=== PATIENT | male | born 1970 | race Caucasian/White ===

== ENCOUNTER 2024-01-13 22:23 | Inpatient (IN) | payer OTHER, MEDICAID ==
[~2024-01-13] VITALS: Ht 182.9 cm; Wt 63.8 kg
[2024-01-13 23:20] LABS: BASO % 0.2 % (0.0-1.0); EOS # 0.1 10^3/uL (0.0-0.5); EOS % 0.7 % (0.0-3.0); HEMATOCRIT 37.7 % (42.0-52.0); HEMOGLOBIN 13.7 g/dl (13.5-17.5); LYMPH # 1.1 10^3/uL (1.5-5.0); LYMPH % 9.5 % (24.0-44.0); MEAN CORPUSCULAR HEMOGLOBIN 34.9 pg (27.0-33.0); MEAN CORPUSCULAR HGB CONC 36.3 g/dl (32.0-36.5); MEAN CORPUSCULAR VOLUME 95.9 fl (80.0-96.0); MONO # 1.1 10^3/uL (0.0-0.8); MONO % 10.1 % (2.0-8.0); NEUTROPHILS # 8.9 10^3/uL (1.5-8.5); PLATELET COUNT, AUTOMATED 316 10^3/uL (150-450); RED BLOOD COUNT 3.93 10^6/uL (4.30-6.10); WHITE BLOOD COUNT 11.2 10^3/uL (4.0-10.0)
[2024-01-13 23:32] LABS: INR 1.16; PARTIAL THROMBOPLASTIN TIME 24.9 SECONDS (24.8-34.2); PROTHROMBIN TIME 14.5 SECONDS (12.5-14.5)
[2024-01-13 23:38] LABS: LIPASE 21 U/L (12-53)
[2024-01-13 23:40] LABS: CPK CREATINE PHOSPHOKINASE 43 U/L (46-171)
[2024-01-14 00:04] LABS: ALBUMIN 3.1 G/DL (3.2-5.2); ALKALINE PHOSPHATASE 342 U/L (46-116); ALT/SGPT 23 U/L (7.0-40); AST/SGOT 11 U/L (<34); BILIRUBIN,DIRECT 0.3 MG/DL (<0.4); BILIRUBIN,TOTAL 0.7 MG/DL (0.3-1.2); BLOOD UREA NITROGEN 7 MG/DL (9-23); CARBON DIOXIDE LEVEL 26 MMOL/L (20-31); CHLORIDE LEVEL 93 MMOL/L (98-107); CK-MB VALUE MASS < 1.0 NG/ML (<3.6); CREATININE FOR GFR 0.58 MG/DL (0.70-1.30); GLOMERULAR FILTRATION RATE > 60.0 (>56); GLUCOSE, FASTING 275 MG/DL (60-100); MB/CK RELATIVE INDEX 2.32 (< OR =4); POTASSIUM SERUM 3.9 MMOL/L (3.5-5.1); SODIUM LEVEL 125 MMOL/L (136-145)
[2024-01-14] MEDS ORDERED: ISOVUE-370 76% 100ML VIAL As Ordered ONE (00:39)
[2024-01-14 01:45] LABS: CPK CREATINE PHOSPHOKINASE 43 U/L (46-171)
[2024-01-14 01:46] LABS: CK-MB VALUE MASS < 1.0 NG/ML (<3.6); MB/CK RELATIVE INDEX 2.32 (< OR =4)
[2024-01-14] MEDS: APIXABAN 5 MG TAB (ELIQUIS) PO ONE (03:50)
[2024-01-14] MEDS ORDERED: ATOR80TA59 PO (05:27)
[2024-01-14] MEDS ORDERED: MECL-86 PO (05:27)
[2024-01-14] MEDS ORDERED: OMEP40CA5 PO (05:27)
[2024-01-14] MEDS ORDERED: ASPI-226 PO (05:27)
[2024-01-14] MEDS ORDERED: BUSP5TA PO (05:27)
[2024-01-14] MEDS ORDERED: METO1TAB7 PO (05:27)
[2024-01-14] MEDS ORDERED: NITR0.4S14 PO (05:27)
[2024-01-14] MEDS ORDERED: ALBU8.5H INH (05:27)
[2024-01-14] MEDS ORDERED: HOME MED LIST COMPLETE! XX SCH (05:30)
[2024-01-14] MEDS ORDERED: GLUCOSE 4 GM CHEW PO PRN (05:35)
[2024-01-14] MEDS ORDERED: GLUCAGON INJ 1MG VIAL SC PRN (05:35)
[2024-01-14] MEDS ORDERED: DEXTROSE 50% 50ML SYRINGE IV PRN (05:35)
[2024-01-14] MEDS ORDERED: LORazepam 2 MG TAB PO PRN (05:35)
[2024-01-14 06:14] LABS: BASO % 0.3 % (0.0-1.0); EOS # 0.1 10^3/uL (0.0-0.5); EOS % 0.8 % (0.0-3.0); HEMATOCRIT 41.4 % (42.0-52.0); HEMOGLOBIN 14.8 g/dl (13.5-17.5); LYMPH # 1.1 10^3/uL (1.5-5.0); LYMPH % 11.5 % (24.0-44.0); MEAN CORPUSCULAR HEMOGLOBIN 34.7 pg (27.0-33.0); MEAN CORPUSCULAR HGB CONC 35.7 g/dl (32.0-36.5); MEAN CORPUSCULAR VOLUME 97.2 fl (80.0-96.0); MONO # 1.1 10^3/uL (0.0-0.8); MONO % 11.2 % (2.0-8.0); NEUTROPHILS # 7.4 10^3/uL (1.5-8.5); NEUTROPHILS % 75.7 % (36.0-66.0); PLATELET COUNT, AUTOMATED 334 10^3/uL (150-450); RED BLOOD COUNT 4.26 10^6/uL (4.30-6.10); WHITE BLOOD COUNT 9.8 10^3/uL (4.0-10.0)
[2024-01-14] MEDS ORDERED: ALBUTEROL 90 MCG/ACT 8GM HFA INHALER INH PRN (06:20)
[2024-01-14] MEDS ORDERED: ACETAMINOPHEN TAB 650MG DOSE (2X325MG) PO PRN (06:25)
[2024-01-14 06:30] VITALS: BP 140/92; TEMP 97.5; O2SAT 98
[2024-01-14 06:32] VITALS: BP 140/92
[2024-01-14] MEDS: THIAMINE 100 MG TAB PO SCH (06:38)
[2024-01-14 06:45] LABS: ALBUMIN 3.2 G/DL (3.2-5.2); ALKALINE PHOSPHATASE 365 U/L (46-116); ALT/SGPT 23 U/L (7.0-40); AST/SGOT 12 U/L (<34); BILIRUBIN,TOTAL 0.8 MG/DL (0.3-1.2); BLOOD UREA NITROGEN 6 MG/DL (9-23); CALCIUM LEVEL 9.9 MG/DL (8.5-10.1); CARBON DIOXIDE LEVEL 28 MMOL/L (20-31); CHLORIDE LEVEL 96 MMOL/L (98-107); CREATININE FOR GFR 0.58 MG/DL (0.70-1.30); GLOMERULAR FILTRATION RATE > 60.0 (>56); GLUCOSE, FASTING 243 MG/DL (60-100); MAGNESIUM LEVEL 1.8 MG/DL (1.8-2.4); POTASSIUM SERUM 4.4 MMOL/L (3.5-5.1); SODIUM LEVEL 129 MMOL/L (136-145); TOTAL PROTEIN 7.5 G/DL (5.7-8.2)
[2024-01-14] MEDS: INSULIN LISPRO (NovoLOG) PER UNIT SC SCH (07:30)
[2024-01-14] MEDS: oxyCODONE 5MG TAB PO PRN (07:57)
[2024-01-14 07:58] VITALS: BP 153/91
[2024-01-14] MEDS: METOPROLOL SUCC (TopROL XL) 50MG **XL** TAB PO SCH (07:58)
[2024-01-14] MEDS: ASPIRIN 81MG ENTERIC TABLET PO SCH (07:58)
[2024-01-14] MEDS: FOLIC ACID 1MG TAB PO SCH (07:58)
[2024-01-14] MEDS: busPIRone 5 MG TAB PO SCH (07:59)
[2024-01-14] MEDS: MECLIZINE 25 MG TABLET PO SCH (07:59)
[2024-01-14] MEDS: MULTIVITAMINS/MINERALS THERAP 1 TAB PO SCH (07:59)
[2024-01-14] MEDS: ATORVASTATIN 20 MG TAB PO SCH (07:59)
[2024-01-14] MEDS ORDERED: SCOPOLAMINE 1MG TRANSDERMAL PATCH TOP PRN (09:55)
[2024-01-14] MEDS: MORPHINE 10MG/0.5ML ORAL CONCENTRATE SOLUTION U/D SL PRN (13:18)
[2024-01-14] MEDS ORDERED: ELIQ5TAB PO (13:46)
[2024-01-14 14:20] VITALS: BP 138/89
[2024-01-14] MEDS ORDERED: ENOXAPARIN 80MG/0.8ML SYRINGE (J1650 PER 10MG) SC SCH (18:00)
[2024-01-14 21:00] VITALS: BP 138/89
[2024-01-14] MEDS ORDERED: INSULIN LISPRO (NovoLOG) PER UNIT SC SCH (21:00)
[2024-01-14] MEDS ORDERED: APIXABAN 5 MG TAB (ELIQUIS) PO SCH (21:00)
[2024-01-14] MEDS: APIXABAN 5 MG TAB (ELIQUIS) PO SCH (21:08)
[2024-01-14] MEDS: LORazepam 1 MG TAB PO PRN (21:08)
[2024-01-15] MEDS: MORPHINE 10MG/0.5ML ORAL CONCENTRATE SOLUTION U/D SL PRN (08:49)
[2024-01-15] MEDS: oxyCODONE 15MG CR TAB PO SCH (10:12)
[2024-01-15] MEDS ORDERED: ATIV1TAB10 PO (12:05)
[2024-01-15] MEDS ORDERED: OXYC15TA66 PO (12:05)
[2024-01-15] MEDS ORDERED: HYOS125TA PO (12:06)
[2024-01-15] MEDS ORDERED: MORP1SOL5 PO (12:06)
[2024-01-15] MEDS ORDERED: CREO12CA PO (12:23)
[2024-01-21] MEDS ORDERED: APIXABAN 5 MG TAB (ELIQUIS) PO SCH (09:00)
== END 2024-01-15 12:43 | disposition hospice, home (50) | DRG 134 ==
LOC: M ED 22:23 → M ED INP 01-14 04:42 → M MSPAV 01-14 06:20
PROVIDERS: ADMIT Student in an Organized Health Care Education/Training Program; ATTEND Internal Medicine
DX: I26.94 Multiple subsegmental thrombotic pulmonary emboli without acute cor pulmonale (principal); C78.00 Secondary malignant neoplasm of unspecified lung; C78.7 Secondary malignant neoplasm of liver and intrahepatic bile duct; C25.9 Malignant neoplasm of pancreas, unspecified; E87.1 Hypo-osmolality and hyponatremia; G89.3 Neoplasm related pain (acute) (chronic); J45.909 Unspecified asthma, uncomplicated; E78.5 Hyperlipidemia, unspecified; E11.9 Type 2 diabetes mellitus without complications; I82.452 Acute embolism and thrombosis of left peroneal vein; I10 Essential (primary) hypertension; I82.442 Acute embolism and thrombosis of left tibial vein; R63.4 Abnormal weight loss; I25.10 Atherosclerotic heart disease of native coronary artery without angina pectoris; Z66 Do not resuscitate; Z51.5 Encounter for palliative care; Z79.82 Long term (current) use of aspirin; Z79.899 Other long term (current) drug therapy